=== PATIENT | female | born 1950 | race Caucasian/White ===

== ENCOUNTER 2020-10-08 07:32 | Outpatient (CLI) | payer MEDICARE ==
[2020-10-08 18:05] LABS: SARS-CoV-2 MS2 Positive; SARS-CoV-2 N Gene Negative; SARS-CoV-2 S Gene Negative; SARS-CoV-2 by NAA Not Detected (NotDetected); SARS-CoV-2 orf1ab Negative
== END 2020-10-08 07:33 | disposition home or self-care (01) ==
LOC: LABBT 07:32
PROVIDERS: ATTEND Ophthalmology Retina Specialist
DX: Z01.812 Encounter for preprocedural laboratory examination (principal); Z20.822 Contact with and (suspected) exposure to COVID-19; H35.372 Puckering of macula, left eye; H54.7 Unspecified visual loss
CPT/HCPCS: 87635; U0003

== ENCOUNTER 2020-10-11 05:48 | Day surgery (SDC) | payer MEDICARE ==
[2020-10-09 10:49] VITALS: BMI 29.2
[2020-10-11] MEDS ORDERED: Fluorouracil 100 MG, Enoxaparin Sodium 25 MG, EPINEPHrine 0.3 MG in Ophthalmic Irrigati... IRR SCH ×2 (06:00→06:45)
[2020-10-11] MEDS ORDERED: Cyclopentolate 1% Opth Drop 2 ML BOT ONE (06:03)
[2020-10-11] MEDS ORDERED: Phenylephrine 2.5% Ophth Soln 5 ML BOT ONE (06:03)
[2020-10-11] MEDS ORDERED: Midazolam HCl 2 mg/2 ml Vial ONE (06:58)
[2020-10-11] MEDS ORDERED: Fentanyl 100 MCG/2 ML VIAL ONE (06:58)
[2020-10-11] MEDS ORDERED: PROPOFOL 20 ML ONE (07:08)
[2020-10-11] MEDS ORDERED: Lidocaine 1% PF 5 ML VIAL ONE (12:04)
[2020-10-11] MEDS ORDERED: Triamcinolone 40 MG/ML VIAL ONE (12:04)
[2020-10-11] MEDS ORDERED: Indocyanine Green 25 MG/10 ML VIAL ONE (12:04)
[2020-10-11] MEDS ORDERED: CEFAZOLIN 1 GM VIAL ONE (12:04)
[2020-10-11] MEDS ORDERED: Maxitrol 0.1% Opth Oint 3.5 GM TUBE ONE (12:04)
[2020-10-11] MEDS ORDERED: Lidocaine 4% PF 5 ML AMP ONE (12:04)
[2020-10-11] MEDS ORDERED: PROPOFOL 200 MG/20 ML VIAL ONE (12:04)
[2020-10-11] MEDS ORDERED: Bupivacaine PF 0.75% SDV 10 ML ONE (12:04)
--- NOTE | 2020-10-11 18:49 | OP ---
DATE OF PROCEDURE: 10/11/2020 PREOPERATIVE DIAGNOSIS: Epiretinal membrane, left eye. POSTOPERATIVE DIAGNOSIS: Epiretinal membrane, left eye. PROCEDURES PERFORMED: Pars plana vitrectomy, membrane peel, left eye. ANESTHESIA: Local with monitored anesthesia care. DESCRIPTION OF PROCEDURE: The patient was identified in the preoperative holding area. Appropriate informed consent for the planned surgical procedure on the left eye had been obtained. The patient was transported to the operative suite. Appropriate cardiopulmonary monitoring was established. Local anesthesia was obtained using retrobulbar modified Van Lint lid block using 50:50 mixture of 4% lidocaine and 0.75% bupivacaine. The patient was prepped and draped in usual sterile manner for ophthalmic surgery, left eye. Lid speculum was placed in the left eye. A 27-gauge trocar was placed through conjunctiva and sclera superotemporally, inferotemporally, and superonasally. Infusion line was placed inferotemporally. Light pipe vitreous cutter was inserted into the eye. Core vitrectomy was performed. Indocyanine green dye was infused on the posterior pole x3, identifying the epiretinal membrane. This was extensive elevated using a membrane scraper and peeled across the macula using end gripping forceps. The internal limiting membrane was also peeled. Indirect ophthalmoscopy was used to exam the retina 360 degrees. No holes, breaks, or tears were identified. Trocars were removed. Eye was noted to retain pressure well. Retrobulbar Kenalog and subconjunctival Ancef were placed. Antibiotic ointment was placed. The eye was patched and shielded. The patient was taken to the postop recovery unit in good condition, having suffered no immediate perioperative complications. The patient was instructed to keep patch shield on. Avoid lifting or bending. Followup appointment with Dr. Chavez. Job ID: [id number]
== END 2020-10-11 09:47 | disposition home or self-care (01) ==
LOC: SDC 05:48
PROVIDERS: ATTEND Ophthalmology Retina Specialist
PROC: 08T53ZZ Resection of Left Vitreous, Percutaneous Approach (ICD-10-PCS; principal; 2020-10-11)
PROC: 08NF3ZZ Release Left Retina, Percutaneous Approach (ICD-10-PCS; 2020-10-11)
DX: H35.372 Puckering of macula, left eye (principal); I10 Essential (primary) hypertension; E11.9 Type 2 diabetes mellitus without complications; F32.9 Major depressive disorder, single episode, unspecified; Z79.84 Long term (current) use of oral hypoglycemic drugs; Z79.899 Other long term (current) drug therapy; Z88.8 Allergy status to other drugs, medicaments and biological substances
CPT/HCPCS: J0171; J1650; J2250; J2704; J3010; J9190